=== PATIENT | female | born 1995 | race Caucasian/White ===

== ENCOUNTER 2023-10-23 13:51 | Emergency (ER) | payer MEDICAID, SELFPAY ==
--- NOTE | ~2023-10-23 | XR_ITS ---
EXAM: XR knee LT 3V DATE: 10/23/2023 15:23 HISTORY: left anterior/lateral knee pain no injury . COMPARISON: None available. FINDINGS: Normal mineralization. Mildly comminuted fracture of the proximal left tibial plateau exte nding from the medial cortex to the lateral compartment. There is a 5 mm articular surface gap. Mild impaction. Mild lateral displacement. Oblique fracture of the left fibular head No lytic or blastic l esion. Joint spaces are maintained. No erosion or periosteal change. Moderate knee joint effusion. IMPRESSION: Mildly comminuted, mildly impacted, mildly displaced intra-articular left tibial plateau fracture. Oblique left fibular head fracture. Reviewed, dictated and finalized at location K. ECHNICAL DEPARTMENT MANAGER IMPRESSION: Mildly comminuted, mildly impacted, mildly displaced intra-articular left tibia l plateau fracture. Oblique left fibular head fracture.
--- NOTE | 2023-10-23 14:15 | ED.LOWEXIN ---
HPI - Extremity Injury (Lower) General Chief Complaint: Extremity Injury, Lower Stated Complaint: fall, left knee Time Seen by Provider: 10/23/23 14:51 Source: patient and RN notes reviewed Mode of arrival: ambulatory Limitations: no limitations History of Present Illness HPI Narrative: 28-year-old female presents with concern for left knee pain. She reports Monday she jumped up quickly from sitting to answer the door and felt a pain in her knee and then she fell. She reports then she has been having knee pain, cramping sensation to the lateral knee. Reports pain at rest, worsening pain with weight-bearing. She reports Tylenol helps her pain. She reports she has used ice and elevation. Reports swelling to the knee, thigh, calf and ankle. Denies history of injury a problem with that knee. MD complaint: knee injury Related Data Home Medications Medication Instructions Recorded Confirmed No Home Medications 10/23/23 10/23/23 Allergies Allergy/AdvReac Type Severity Reaction Status Date / Time No Known Allergies Allergy Verified 10/23/23 14:22 Review of Systems Review of Systems: CONSTITUTIONAL: Denies malaise, chills, sweats, or fever. SKIN: Denies rash or itching, open skin, laceration, abrasion, redness, warmth MUSCULOSKELETAL: Reports left knee pain, cramping, and swelling NEUROLOGIC: Denies numbness, weakness All systems reviewed & are unremarkable except as noted in HPI and below PMFSH Comments At time of signature, agree with nursing past medical, surgical, social and family history. There is no relevant family history pertinent to the presenting complaint Exam Narrative: GENERAL: Well-appearing, well-nourished, and in no acute distress. HEAD: Normocephalic, atraumatic. EYES: PERRLA, conjunctivae clear NECK: Supple. CHEST: Speaks in full sentences. No respiratory distress. HEART: Regular rate and rhythm. Normal and equal peripheral pulses. EXTREMITIES: Left knee has normal sensation, limited range of motion. Considerable knee, lower thigh, calf, ankle edema and warmth without erythema or ecchymosis. Normal sensation with sensitivity to light touch and pain. Anterior knee, lateral knee, calf tenderness. No open wounds, no skin tenting, no devitalized tissue or atrophy, no trophic changes, no obvious deformity, alignment normal, nearby joints and structures intact. Distal pulses palpable and equal bilaterally, skin warm, dry, pink. Capillary refill less than 3 seconds. SKIN: Warm, dry, no rash. NEURO: Alert and oriented x3. PSYCH: Normal mood and affect Course Course Emergency Course: [address] Swan who advised this fracture needs a trauma surgeon and suggested transfer to [facility] or [place] 1557 spoke to [facility] transfer center regarding ED transfer, waiting for call back from ortho. Spoke with Dr. Wells from [facility] and then Dr. Acevedo from [facility] ED, full agreed to accept patient to the emergency room. Patient is aware of, understands and agrees to be transferred to [facility] emergency room. Patient agrees to proceed directly to the emergency department. Portions of this record may have been created with voice recognition software Level of Care: Express Care Visit Vital Signs Vital signs: Vital Signs Temperature 98.5 F 10/23/23 14:28 Pulse Rate 113 H 10/23/23 14:28 Respiratory Rate 16 10/23/23 14:28 Blood Pressure 141/92 H 10/23/23 14:28 Pulse Oximetry 100 10/23/23 14:28 Temperature 98.5 F 10/23/23 14:28 Pulse Rate 113 H 10/23/23 14:28 Respiratory Rate 16 10/23/23 14:28 Blood Pressure 141/92 H 10/23/23 14:28 Pulse Oximetry 100 10/23/23 14:28 Reviewed. MDM - Extremity Injury (Lower) MDM Narrative Medical decision making narrative: Exam findings and imaging Joe further evaluation emergency room; patient is non-toxic appearing and is in no distress. Imaging Data Radiologist's impression: EXAM:? XR knee LT 3V
[2023-10-23 14:28] VITALS: BP 141/92; PULSE 113; RESP 16; TEMP 36.9; O2SAT 100
[2023-10-23] MEDS: ACETAMINOPHEN 500 MG TABLET 1000 MG PO (16:12)
== END 2023-10-23 16:29 | disposition short-term general hospital (02) ==
PROVIDERS: Emergency Provider Nurse Practitioner
DX: S82.142A Displaced bicondylar fracture of left tibia, initial encounter for closed fracture (principal); W19.XXXA Unspecified fall, initial encounter
CPT/HCPCS: 73562; 99214; A9270; G0463; L1830